=== PATIENT | male | born 1980 | race Caucasian/White ===

== ENCOUNTER 2022-07-25 14:46 | Emergency (ER) | payer BC, SELFPAY ==
[2022-07-25 15:02] VITALS: BP 118/81; PULSE 71; RESP 18; TEMP 36.4; O2SAT 96
--- NOTE | 2022-07-25 15:23 | ED.EAR ---
HPI - Ear Problem General Chief complaint: Ear Stated complaint: rt ear pain Time Seen by Provider: 07/25/22 15:23 Source: patient, RN notes reviewed and old records reviewed Mode of arrival: ambulatory Limitations: no limitations History of Present Illness HPI Narrative: 42-year-old male who presents to [facility] with complaints of right ear pain since last week, patient states he feels like he has fluid on his ear and has an ear infection. Patient reports some feelings of sinus congestion and has some cough noted denies any known feverrs chills or sweats or any body aches,denies any sore throat. patient reports that he has taken some Benadryl and Brittney Rankin cold medication. MD Complaint: ear pain Location: right ear Duration: constant Severity: moderate Discharge from ear: Reports no Treatment prior to arrival: other (Benadryl, brittney seltzer) Related Data Allergies Allergy/AdvReac Type Severity Reaction Status Date / Time No Known Allergies Allergy Mild Verified 07/25/22 15:07 Review of Systems Review of Systems: CONSTITUTIONAL: Denies malaise, chills, sweats, or fever. EYES: Denies visual changes, redness, or discharge. ENT: Reports rhinorrhea, congestion, sinus pain,positive for otalgia no sore throat. CARDIOVASCULAR: Denies chest pain, palpitations, or edema. RESPIRATORY: Reports cough.? Denies dyspnea. GASTROINTESTINAL: Denies abdominal pain, nausea, vomiting, diarrhea SKIN: Denies rash or itching. MUSCULOSKELETAL: Denies myalgia. NEUROLOGIC: Denies headache. All systems reviewed & are unremarkable except as noted in HPI and below PMFSH Past Medical History Medical History Ear infection Surgical History Surgical History (Updated 07/26/22 @ 22:15 by Mily Lockhart NP) History of cholecystectomy Family History Family History Grandparent Cerebrovascular accident Family history of coronary artery disease Other Depression Hypertension Social History Social History (Updated 07/26/22 @ 22:13 by Mily Lockhart NP) Smoking status: Never smoker Alcohol intake: current Gender identity (if verbalized by the patient): Male Comments At time of signature, agree with nursing past medical, surgical, social and family history. There is no relevant family history pertinent to the presenting complaint Exam Narrative: GENERAL: Well-appearing, well-nourished, and in no acute distress. HEAD: Normocephalic EYES: PERRLA, conjunctivae clear ENT: Nares clear, turbinates edematous and erythematous, clear to light yellow discharge. Mucous membranes moist. TM pearly coates with dull light reflex bilaterally;some bulging of TM right ear, no tragal tenderness. Oropharynx erythematous without lesions. Tonsils not enlarged and without exudate, no drooling, no hoarseness, no trismus, uvula midline, post nasal drainage. NECK: Supple. No lymphadenopathy CHEST: Clear to auscultation, breath sounds equal. No wheezing, rhonchi, rales, or stridor. No respiratory distress, speaks in full sentences.dry cough, SAO2 96% on room air HEART: Regular rate and rhythm. No murmur heard. SKIN: Warm, dry, no rash. NEURO: Alert and oriented x3. PSYCH: Normal mood and affect Course Course Emergency Course: Patient is aware of diagnosis, understands and agrees to treatment plan.? Anticipatory guidance given.? Patient agrees to follow-up as directed and is aware of reasons to seek care at the emergency department. Portions of this record may have been created with voice recognition software Level of Care: Express Care Visit Vital Signs Vital signs: Vital Signs Temperature 36.4 C L 07/25/22 15:02 Pulse Rate 71 07/25/22 15:02 Respiratory Rate 18 07/25/22 15:02 Blood Pressure 118/81 07/25/22 15:02 Pulse Oximetry 96 07/25/22 15:02 Oxygen Delivery Room Air 07/25/22 15:0
== END 2022-07-25 15:52 | disposition home or self-care (01) ==
PROVIDERS: Emergency Provider Registered Nurse; PCP Family Medicine
DX: J06.9 Acute upper respiratory infection, unspecified (principal); R05.9 Cough, unspecified; H69.91 Unspecified Eustachian tube disorder, right ear
CPT/HCPCS: 99213; G0463

== ENCOUNTER 2024-06-10 08:52 | Outpatient (CLI) | payer BC, SELFPAY ==
[2024-06-10 09:16] LABS: Basophils Percent Auto 0.6 % (0.2-1.2); Eosinophils Absolute Auto 0.1 K/mm3 (0-0.3); Eosinophils Percent Auto 2.1 % (0-4.4); Hematocrit 43.1 % (42.0-52.0); Hemoglobin 13.8 g/dL (14.0-18.0); Immature Granulocyte Absolute 0.09 K/mm3 (0.00-0.031); Immature Granulocyte Percent A 1.4 % (0-0.5); Lymphocytes Absolute Auto 1.14 K/mm3 (0.9-3.2); Lymphocytes Percent Auto 18.1 % (18.3-44.2); Mean Corpuscular Hemoglobin 28.5 pg (26-34); Monocytes Absolute Auto 0.4 K/mm3 (0.1-0.6); Monocytes Percent Auto 5.7 % (2.6-8.5); Neutrophils Absolute Auto 4.5 K/mm3 (1.3-6.7); Neutrophils Percent Auto 72.1 % (45.5-73.1); Platelet Count Result 201 k/mm3 (150-375); Red Blood Count 4.84 M/mm3 (4.6-6.20); Red Cell Distribution Width 13.7 % (11.5-14.5); White Blood Count 6.3 K/mm3 (4.5-10.0)
[2024-06-10 09:26] LABS: Alanine Aminotransferase 38 U/L (6-50); Albumin Level 4.3 g/dL (3.5-5.1); Alkaline Phosphatase 86 U/L (38-126); Anion Gap 5 mmol/L (4-12); Aspartate Amino Transferase 33 U/L (17-59); Bilirubin,Total 0.6 mg/dL (0.2-1.3); Blood Urea Nitrogen 18 mg/dL (9-20); Calcium 8.9 mg/dL (8.4-10.2); Carbon Dioxide 28 mmol/L (22-30); Chloride 106 mmol/L (98-107); Cholesterol 288 mg/dL (0-200); Estimated Glomerular Filt Rate > 60; Glucose 106 mg/dL (65-110); HDL Direct 36 mg/dL; Potassium 4.1 mmol/L (3.4-5.0); Sodium 139 mmol/L (137-145); Triglycerides 474 mg/dL (<150)
[2024-06-10 09:37] LABS: LDL Cholesterol Direct 46 mg/dL
[2024-06-10 09:57] LABS: Prostate Specific Antigen 0.6 ng/mL (< OR = 4.0)
== END 2024-06-10 08:53 | disposition home or self-care (01) ==
PROVIDERS: PCP Family Medicine; Visit Provider Nurse Practitioner Adult Health
DX: E78.2 Mixed hyperlipidemia (principal); D64.9 Anemia, unspecified; Z13.29 Encounter for screening for other suspected endocrine disorder; Z12.5 Encounter for screening for malignant neoplasm of prostate
CPT/HCPCS: 36415; 80053; 80061; 84153; 84443; 85025; G0103

== ENCOUNTER 2024-09-19 00:43 | Day surgery (SDC) | payer BC, SELFPAY ==
[2024-09-11 10:08] VITALS: BMI 34.0
--- OUTSIDE RECORDS SUMMARY | 2024-09-19 00:46 | XMS_ITS | Encounter Summary ---
Author Organization [facility] Address [address] [place] [address] Care Team Providers Care Import Clerk Name Role Phone Ernesto Haynes MD Primary Care Provider [phone] Clarence Squires MD Unavailable [phone] Encounter Details Date Type Department Care Team (Late st Contact Info) Description 11/01/2018 [facility] Priority Care - [address] [place] [address] Scanned, Documents Social History Tobacco Use Types Packs/Day Years Used Date Smoking Tobacco: Never Smokeless Tobacco: Never Sex and Gender Information Value Date Recorded Sex Assigned at Not on file Legal Sex Male 12:27 PM CDT Gender Identity Not on file Sexual Orientation Not on file documented as of this encounter Progress Notes * Zscanned, Documents - 11/01/2018 12:00 AM CDT ALEX KULKARNI MD: ACCT: [id number] ADMIT/SERVICE DATE: 10/30/18 DISCHARGE DATE: 11/03/18 : 1980 PT TYPE: DIS IN SEX: M ORD SITE: [facility] REPORT OF PATHOLOGICAL EXAMINATION DATE OF SURGERY: 10/31/2018 SURGICAL PATH NO: [id number] DATE OBTAINED: 11/01/2018 DATE RETURNED: 11/04/2018 CHART DOCUMENT PATHOLOGICAL DIAGNOSIS: I. GALLBLADDER, CHOLECYSTECTOMY -CHRONIC CHOLECYSTITIS AND CHOLELITHIASIS NOTE: HISTORY OF MULTIPLE PREVIOUS GALLBLADDER ATTACKS AND THE HISTOLOGIC FINDINGS ARE CHARACTERISTIC OF WHAT USED TO BE CALLED SUBACUTE CHOLECYSTITIS. SPECIMEN: GALLBLADDER GROSS EXAMINATION: THE SPECIMEN IS RECEIVED IN FORMALIN LABELED WITH PATIENT'S NAME AND GALLBLADDER. THE SPECIMEN CONSISTS OF A GALLBLADDER MEASURING 11 CM X 3 X 3 CM. THE SEROSAL SURFACE IS DUNN/YEBOAH AND DARK RED. ABOUT 40% IS PERITONEALIZED. THE GALLBLADDER WAS PREVIOUSLY OPENED REVEALING A DARK BROWN MUCOSA VELVETY WITH SOME YELLOW FLECKING. A LOT OF THE TISSUE IS NECROTIC. IN THE CONTAINER ARE MULTIPLE YELLOW STONES RANGING IN SIZE FROM 0.2 UP TO 2.1 CM IN GREATEST DIMENSION. THE WALL OF THE GALLBLADDER MEASURES UP TO 0.7 CM IN GREATEST THICKNESS. DEVELOPMENT SPEC SECTIONS ARE SUBMITTED IN A SINGLE CASSETTE. TD/RC 11/01/2018 11/01/2018 01:50 P MICROSCOPIC EXAMINATION: SECTIONS OF THE GALLBLADDER SHOWS EXTENSIVE HEMORRHAGE OF THE MUCOSA. THERE IS MILD CHRONIC INFLAMMATION WITH OCCASIONAL SEGMENT NEUTROPHILS AND EOSINOPHILS PRESENT. THE WALL SHOWS EXTENSIVE HEMORRHAGE, FIBROSIS, AND CHRONIC INFLAMMATION. THE OUTER SURFACE SHOWS MILD CHRONIC INFLAMMATION WITH OF LIVER TISSUE ATTACHES TO THE GALLBLADDER. THE LIVER TISSUE APPEARS UNREMARKABLE. ELECTRONICALLY SIGNED BY LINDSAY GUNDERSON MD 11/04/2018 01:50 P DT: LORAINE/BETY:11/04/2018 DOC NO: [id number] documented in this encounter Plan of Treatment Not on file documented as of this encounter Visit Diagnoses Not on filedocumented in this encounter Care Teams Import Clerk Relationship Specialty Start Date End Date Ernesto Haynes MD [address] [address] PCP - General FAMILY PRACTICE 10/17/18 Clarence Squires MD [facility]. [address] [address] [place] Pot Fluxer CARDIOVASCULAR DISEASE 12/09/18 documented as of this encounter
--- OUTSIDE RECORDS SUMMARY | 2024-09-19 00:46 | XMS_ITS | Clinical Summary ---
Author Organization [facility] Address [address] [place] [address] Care Team Providers Care Bundle Collector Name Role Phone Ernesto Haynes MD Primary Care Provider [phone] Clarence Squires MD Unavailable [phone] Allergies No known active allergies Medications No known medications Active Problems Problem Noted Date Diagnosed Date Status post cholecystectomy 11/08/2018 Resolved Problems Problem Noted Date Diagnosed Date Resolved Date Preoperative clearance 11/01/201801/29 Social History Tobacco Use Types Packs/Day Years Used Date Smoking Tobacco: Never Smokeless Tobacco: Never Sex and Gender Information Value Date Recorded Sex Assigned at Not on file Legal Sex Male 12:27 PM CDT Gender Identity Not on file Sexual Orientation Not on file Last Filed Vital Signs Vital Sign Reading Time Taken Comments Blood Pressure 144/78 2019 1:55 PM CDT Pulse 85 2019 1:55 PM CDT Temperature 36 C (96.8 F) 12/11/2018 8:11 AM CDT Respiratory Rate 16 11/15/2018 2:44 PM CDT Oxygen Saturation 95% 2019 1:55 PM CDT Inhaled Oxygen Concentration - - Weight 109.3 kg (241 lb) 2019 1:55 PM CDT Height 182.9 cm (6') 2019 1:55 PM CDT Body Mass Index 32.69 2019 1:55 PM CDT Plan of Treatment Health Maintenance Due Date Last Done Comments Colorectal Cancer Screening Colonoscopy (10 Years) 1979 Annual Physical 1982 Hepatitis C 1997 DTaP, Tdap and Td Vaccines ( 1 - Tdap) 1998 Hepatitis B Vaccines (1 of 3 - 19+ 3-dose series) 1998 COVID-19 Vaccine (2023-2 5 season) 2024 Influenza Adult (#1) 2024 HPV Vaccines Aged Out No longer eligi ble based on patient's age to complete this topic Meningococcal B Vaccine Aged Out No l onger eligible based on patient's age to complete this topic Meningococcal Vaccine Aged Out No joe chino eligible based on patient's age to complete this topic Pneumococcal Vaccine: Pediat rics (0 to 5 Years) and At-Risk Patients (6 to 64 Years) Aged Out No longer eligible b ased on patient's age to complete this topic RSV Immunizations Under 20 Months Aged Out No longer eligible based on patient's age to complete this topic Insurance Care Teams Bundle Collector Relationship Specialty Start Date End Date Ernesto Haynes MD [address] [place] [address] PCP - General FAMILY PRACTICE 10/17/18 Clarence Squires MD [address] [address] [place] Extra Gang Supervisor CARDIOVASCULAR DISEASE 12/09/18
--- OUTSIDE RECORDS SUMMARY | 2024-09-19 00:46 | XMS_ITS | Clinical Summary ---
Author Organization [facility] Address [address] [place] [address] Care Team Providers Care Cannery Tender Engineer Name Role Phone Unavailable Primary Care Provider Unavailabl e Source Comments [facility],non-owned Affiliates and Associated Physician Practices is amultiple site organization consisting of ambulatory clinics and hospital sitesin [place], [place], [place] and [place]. This disclosure is being madepursuant to the Care Everywhere program and may not contain all information available regarding this patient. Last updated 18.[facility] Social History Tobacco Use Types Packs/Day Years Used Date Smoking Tobacco: Never Assessed Sex and Gender Information Value Date Recorded Sex Assigned at Not on file Gender Identity Not on file Sexual Orientation Not on file Plan of Treatment Health Maintenance Due Date Last Done Comments COLOGUARD (AGES 45-75) - COL ON CA SCREENING 1979 COLON MONITORING 1979 COLONOSCOPY - COLON CA SCREENING 1979 CT COLONOGRAPHY - COLON CA SCREENING 1979 Colorectal Cancer Screening 1979 FIT - COLON CA SCREENING 1979 FLEX SIG - COLON CA SCREENING 1979 LIPID TESTING 1979 HIV SCREENING 1994 HEPATITIS C SCREENING 01/24/1997 DTAP/TDAP/TD VACCINES (1 - Tdap) 1998 HEPATITIS B VACCINE (1 of 3 - 19+ 3-dose series) 1998 COVID-19 VACCINE ( - 2023-2 5 season) 2024 INFLUENZA VACCINE (#1) 2024 DEPRESSION SCREENING 07/02/2024 ZOSTER VACCINE (1 of 2) 2029 HIB VACCINE Aged Out No longer eligi ble based on patient's age to complete this topic HPV VACCINE Aged Out No longer eligi ble based on patient's age to complete this topic MENINGOCOCCAL (Group B) VACC INE SHARED DECISION-MAKING Aged Out No longer eligibl e based on patient's age to complete this topic MENINGOCOCCAL GROUPS A/C/Y/W VACCINE Aged Out No longer eligible b ased on patient's age to complete this topic PNEUMOCOCCAL VACCINE Aged Out No long er eligible based on patient's age to complete this topic
[2024-09-19 07:46] VITALS: BP 133/81; PULSE 70; RESP 18; TEMP 36.1; O2SAT 98
[2024-09-19] MEDS: LACTATED RINGERS 1,000 ML 150 ML IV CONT (07:54)
--- NOTE | 2024-09-19 08:44 | PM.IMHP ---
H&P: HPI History of Present Illness Date/Time: 09/19/24 08:44 Chief Complaint: Screening colonoscopy Narrative: This is the patient's first colonoscopy. There are no GI symptoms and there is no family history of colorectal cancer. his father and brother had colon polyps. Review of Systems Review of Systems: All systems reviewed & are unremarkable except as noted in HPI and below PMFSH Past Medical History Medical History Fracture of distal phalanx of finger of left hand Laceration of finger of left hand with complication Screening for prostate cancer Screening for thyroid disorder Encounter for wellness examination Screening for colon cancer Ear infection Surgical History Surgical History History of cholecystectomy Family History Family History Grandparent Cerebrovascular accident Family history of coronary artery disease Other Depression Hypertension Social History Social History Smoking status: Never smoker Alcohol intake: never Substance use: never Substance use type: does not use Do You Feel Safe in your Home?: Yes Lack of Transportation: No Lack of Food: Never True Current Housing: I Have Housing Concerned About Future Housing: No Difficulty Paying Gas/Electric Bills: No Difficulty Paying for Meds: No Currently Unemployed: No Education: Bachelor's Degree Difficulty w/ Childcare or Family Care: No Living arrangements: with family Gender identity (if verbalized by the patient): Male Spiritual care concerns: No Meds Home Medications and Allergies Home Medications ?Medication ?Instructions ?Recorded ?Confirmed ?Type No Home Medications 08/08/24 09/11/24 History Allergies Allergy/AdvReac Type Severity Reaction Status Date / Time No Known Allergies Allergy Mild Verified 09/19/24 07:45 Vital Signs Vital Signs - 24 hr 09/19/24 07:46 Temperature 97 F L Pulse Rate 70 Respiratory Rate 18 Blood Pressure 133/81 Pulse Oximetry 98 Oxygen Delivery Room Air Exam Const: General: cooperative and healthy appearing Resp: Effort & Inspection: normal respiratory effort and able to speak in complete sentences Auscultation: clear to auscultation bilaterally Cardio: Rate: regular rate Rhythm: regular rhythm GI: Inspection: normal to inspection GI Palp: No No hepatosplenomegaly present Auscultation: normal bowel sounds Rectal Exam: deferred Skin: General skin exam: normal color Psych: Appearance: grossly normal Mental Status: mental status grossly normal Assessment and Plan Assessment and plan (1) Screening for colon cancer: Code(s): Z12.11 - Encounter for screening for malignant neoplasm of colon Status: Acute Assessment and Plan: The patient is deemed a good candidate for the procedure. Consent signed. Will proceed.
--- NOTE | 2024-09-19 08:47 | WPDANESEPPF ---
Anes - Initial Pre Proc Eval Procedure: Operation Date: 09/19/24 09:00 Proposed Procedures p Screening Colonoscopy - Prasanth Wilson MD Date/Time: 09/19/24 08:47 Surgeon: Prasanth Wilson MD Pre Op Diagnosis: screening colon Patient Data Age: 44 Gender: M Height: 1.83 m Weight: 112.6 kg Last Vital Signs Temp 97 F L 09/19/24 07:46 Pulse 70 09/19/24 07:46 Resp 18 09/19/24 07:46 BP 133/81 09/19/24 07:46 Pulse Ox 98 09/19/24 07:46 O2 Del Method Room Air 09/19/24 07:46 Allergies Allergy/AdvReac Type Severity Reaction Status Date / Time No Known Allergies Allergy Mild Verified 09/19/24 07:45 Home Medications ?Medication ?Instructions ?Recorded ?Confirmed ?Type No Home Medications 08/08/24 09/11/24 History Patient hx anesthesia problems: none Family hx anesthesia problems: none Results Review: All pre-operative results and documents have been reviewed as part of the pre-operative evaluation. [facility] Past Medical History Medical History Fracture of distal phalanx of finger of left hand Laceration of finger of left hand with complication Screening for prostate cancer Screening for thyroid disorder Encounter for wellness examination Screening for colon cancer Ear infection Surgical History Surgical History History of cholecystectomy Family History Family History Grandparent Cerebrovascular accident Family history of coronary artery disease Other Depression Hypertension Social History Social History Smoking status: Never smoker Alcohol intake: never Substance use: never Substance use type: does not use Do You Feel Safe in your Home?: Yes Lack of Transportation: No Lack of Food: Never True Current Housing: I Have Housing Concerned About Future Housing: No Difficulty Paying Gas/Electric Bills: No Difficulty Paying for Meds: No Currently Unemployed: No Education: Bachelor's Degree Difficulty w/ Childcare or Family Care: No Living arrangements: with family Gender identity (if verbalized by the patient): Male Spiritual care concerns: No Anes - Eval Final PreProcedure Day of Procedure 09/19/24 08:47 Patient weight: obese Heart: regular rate and rhythm Lungs: clear to auscultation Airway: Mallampati scale class II Neurological: alert and oriented Last oral intake: >/= 8 hours ASA classification: II Emergent: no Anesthetic plan: proceed Anesthesia type and monitoring: general GIVS and standard monitoring Results Review: All pre-operative results and documents have been reviewed as part of the pre-operative evaluation. Informed Consent: The patient's anesthetic plan and its attendant risks and benefits were discussed with the patient/family/POA. Questions were solicited and answers provided to the satisfaction of the patient/family/POA.
[2024-09-19 09:14] VITALS: BP 100/68; PULSE 68; RESP 21; O2SAT 95
[2024-09-19 09:24] VITALS: BP 103/68; PULSE 66; RESP 18; O2SAT 96
[2024-09-19 09:34] VITALS: BP 111/77; PULSE 60; RESP 17; O2SAT 99
== END 2024-09-19 09:45 | disposition home or self-care (01) ==
PROVIDERS: PCP Family Medicine; Referring Provider Nurse Practitioner Adult Health; Visit Provider Internal Medicine Gastroenterology
PROC: 0DJD8ZZ Inspection of Lower Intestinal Tract, Via Natural or Artificial Opening Endoscopic (ICD-10-PCS; CPT 45378; principal; 2024-09-19 09:00)
DX: Z12.11 Encounter for screening for malignant neoplasm of colon (principal); D12.0 Benign neoplasm of cecum; K64.4 Residual hemorrhoidal skin tags; E66.9 Obesity, unspecified; Z68.33 Body mass index [BMI] 33.0-33.9, adult
CPT/HCPCS: 45385; 88305; J2003; J2704; J7120

== ENCOUNTER 2025-03-04 08:10 | Outpatient (CLI) | payer BC, SELFPAY ==
--- OUTSIDE RECORDS SUMMARY | 2024-08-11 07:00 | XMS_ITS | Continuity of Care Document ---
Author Organization [facility] Address [address] [place] [address] Phone Care Team Providers Care Keymodule Assembly Machine Tender Name Role Phone Davidson Olea MD, MD Unavailable Unavail able Allergies, Adverse Reactions, Alerts Substance Reaction Status Criticality No Known Allergies Active No Inform ation Procedures Procedure Date BMI Documented Above Normal Limit F/U Pl an Doc Clsd Tx Distal Phalanx Clsd Tx Distal Phalanx Stack Splint, Finger Stack Splint, Finger Office/outpatient visit,[facility], [facility] 2024 BMI Documented Above Normal Limit F/U Pl an Doc Advance Directives Directive Yes / No Effective Date File Name No Information Encounters Encounter Description Practice Location Reason(s) For Visit Diagnoses Date Provider Providers Copied on Encounter Office/outpat ient visit,[place], [facility], [address], [place], [place], [id number], [place] tel:[phone] [facility] Left hand (chief complaint) Disp fx of distal phalanx of left middle finger, initDisp fx of distal phalanx of left ring finger, init Emmie Cedeño. [address], [place], [place], [id number], [place]. tel:[phone] Family History Family Member Type Diagnosis Age At Onset Mother Problem (finding) Heart Disease Mother Problem (finding) Diabetes Payers Payer name Insurance type Covered green party ID Chantelle cordoba(sYenny Faith [facility] [id number] Social History Type Description Quantity Date Captured Comments Alcohol Use Details Unknown Caffeine Use Details Unknown Tobacco Use Status No Information Smoking Status Never smoker Non-Smoking Tobacco Use Details : No Details Available : No Details Available Sex Male Vital Signs Date / Time: Height Weight BMI Pulse Rate Blood Pressure Temperature Respiratory Rate Body Surface Area Head Circumference Head Circ. Percentile Wt./Ananda. Percentile BMI percentile Pulse Ox Inhaled Ox 12:06 PM 72.00 in 115.666 kg (255.00 lbs) 34.5 8 kg/m leonard (2) Chief Complaint And Reason For Visit From encounter dated '08/11/2024 12:00'. Left hand (chief complaint). Description: Alex presents to the office today on August 11, 2024. He is here because of injuries to his left middle and left ring fingers. Alex injured his left middle and left ring fingers just over 2 weeks ago on July 26, 2024. He explains that he was at home and leaving his house. He was holding an air compressor in his left hand, and he fell down 2 steps as he went outside. Alex crushed his left middle and left ring fingers between the ground and the air compressor when he fell. He had immediate pain, and he did go to [facility] in [place], [place] on the same day as the injury to have his fingers evaluated. X-rays of Alex's left middle and left ring fingers were taken at [facility]. I was able to review these x- rays images, and they showed comminuted minimally displaced fractures involving the dalila of the distal phalanges of the left middle and left ring fingers. Aluminum splints were placed, and Alex was told to leave the splints in place until he was evaluated by a hand specialist. Alex is here now for further evaluation and treatment of his left middle and left ring fingers. Reason For Referral Reason For Referral No Information History Of Present Illness Encounter Date Complaint History Of Prese nt Illness Left hand Alex presents t o the office today on August 11, 2024. He is here because of injuries to his left middle and left ring fingers. Alex injured his left middle and left ring fingers just over 2 weeks ago on July 26, 2024. He explains that he was at home and leaving his house. He was holding an air compressor in his left hand, and he fell down 2 steps as he went outside. Alex crushed his left middle and left ring fingers between the ground and the air compressor when he fell. He had immediate pain, and he did go to [facility] in [place], [place] on the same day as the injury to have his fingers evaluated. X-rays of Alex's left middle and left ring fingers were taken at [facility]. I was able to review these x-rays images, and they showed comminuted minimally displaced fractures involving the dalila of the distal phalanges of the left middle and left ring fingers. Aluminum splints were placed, and Alex was told to leave the splints in place until he was evaluated by a hand specialist. Alex is here now for further evaluation and treatment of his left middle and left ring fingers. Functional Status Date Functional Assessmen t No Information Instructions Date Instruction Additional Infor mation No Information Assessments Type Assessment Date assessment Disp fx of distal phalanx of lef t middle finger, init assessment Disp fx of distal phalanx of lef t ring finger, init impression I suggested that Chan on discontinue the aluminum splints. I gave him Stax splints to use instead. Alex will use the splints as needed, but he may remove the splints if he is resting safely and comfortably at home or in another safe place. Alex will follow up with me 2 weeks from now to recheck his left middle finger and left ring finger by clinical exam and x-rays. His treatment and activities will be advanced appropriately at that time. In the meantime, he may call with any questions or concerns Patient Care Teams Name Effective Dates (start - stop) Status Members No Information
--- OUTSIDE RECORDS SUMMARY | 2025-03-04 08:18 | XMS_ITS | Clinical Summary ---
Author Organization [facility] Address [address] [place] [address] Care Team Providers Care Radio Intelligence Operator Name Role Phone Unavailable Primary Care Provider Unavailabl e Source Comments [facility],non-owned Affiliates and Associated Physician Practices is amultiple site organization consisting of ambulatory clinics and hospital sitesin [place], [place], [place] and [place]. This disclosure is being madepursuant to the Care Everywhere program and may not contain all information available regarding this patient. Last updated 18.[facility] Social History Tobacco Use Types Packs/Day Years Used Date Smoking Tobacco: Never Assessed Sex and Gender Information Value Date Recorded Sex Assigned at Not on file Legal Sex Male 11:55 AM TELECOM SALES CONSULTANT Gender Identity Not on file Sexual Orientation [...] - 19+ 3-dose series) 1998 COVID-19 VACCINE (1 - 2023-2 5 season) 2024 DEPRESSION SCREENING 07/02/2024 INFLUENZA VACCINE (#1) 2025 ZOSTER VACCINE (1 of 2) 2029 HIB [...] patient's age to complete this topic Insurance [facility]
[2025-03-04 09:10] LABS: Cholesterol 222 mg/dL (0-200); HDL Direct 31 mg/dL; Triglycerides 407 mg/dL (<150)
== END 2025-03-04 08:11 | disposition home or self-care (01) ==
PROVIDERS: PCP Family Medicine; Visit Provider Nurse Practitioner Adult Health
DX: E78.2 Mixed hyperlipidemia (principal)
CPT/HCPCS: 36415; 80061